=== PATIENT | female | born 1985 | race Caucasian/White ===

== ENCOUNTER 2018-11-14 20:15 | Emergency (ER) | payer OTHER ==
[~2018-11-14] VITALS: Ht 157.5 cm; Wt 73.5 kg
[2018-11-14 20:20] VITALS: BP 114/60
--- NOTE | 2018-11-14 20:23 | NUR ---
TO LOBBY A/W BED AMBULATORY
--- NOTE | 2018-11-14 21:54 | NUR ---
PT TAKEN TO BED 5
--- NOTE | 2018-11-14 22:06 | NUR ---
33 Y/O FEMALE PRESENTS TO ED, C/O HEADACHE X1 WEEK. PT STATES HEADACHE WORSENED YESTERDAY 10/31. C/O OF 2 EPISODES OF N/V YESTERDAY. PT STATES TAKING SISTER'S UNKNOWN MEDICATION FOR PAIN, INEFFECTIVE. PT UNABLE TO ALLEVIATE PAIN. PT VSS. ERMD AWARE. WILL CONTINUE TO MONITOR.
--- NOTE | 2018-11-14 23:17 | NUR ---
Dr. Marx examining patient.
[2018-11-14] MEDS ORDERED: METOCLOPRAMIDE 10 MG/2 ML INJ VIAL IVP ONE (23:35)
[2018-11-14] MEDS ORDERED: diphenhydrAMINE 50 MG/ML VIAL IVP ONE (23:35)
[2018-11-14] MEDS ORDERED: NACL 0.9% 1,000 ML IV ONE (23:35)
[2018-11-14] MEDS ORDERED: KETOROLAC 15 MG/ML VIAL IVP ONE (23:35)
[2018-11-15 00:01] LABS: BASOPHILS % (AUTO) 0.3 % (0.0-2.0); EOSINOPHILS # (AUTO) 0.2 K/uL (0-0.4); HEMATOCRIT 39.8 % (36-48); HEMOGLOBIN 13.2 g/dL (12.0-16.0); LYMPHOCYTES # (AUTO) 2.6 K/uL (2.5-16.5); MEAN CORPUSCULAR HEMOGLOBIN 27 pg (27-31); MEAN CORPUSCULAR HGB CONC 33 g/dL (33-37); MEAN CORPUSCULAR VOLUME 79.9 fL (80-94); MONOCYTES # (AUTO) 0.5 K/uL (0.8-1.0); MONOCYTES % (AUTO) 8.2 % (1.7-9.3); NEUTROPHILS % (AUTO) 47.5 % (42.2-75.2); PLATELET COUNT (AUTO) 215 K/uL (140-450); RED BLOOD CELL COUNT(AUTO) 4.98 MIL/uL (4.20-5.40); RED CELL DISTRIBUTION WIDTH 15.5 % (11.6-13.7); WHITE BLOOD COUNT (AUTO) 6.4 K/uL (4.8-10.8)
[2018-11-15 00:22] LABS: APPEARANCE,URINE CLEAR (CLEAR); BILIRUBIN,URINE NEGATIVE (NEGATIVE); BLOOD, URINE NEGATIVE (NEGATIVE); COLOR,URINE YELLOW (YELLOW); LEUKOCYTE ESTERASE ,URINE NEGATIVE (NEGATIVE); NITRITE, URINE NEGATIVE (NEGATIVE); UGLUCOSE NEGATIVE (NEGATIVE)
[2018-11-15 00:24] LABS: ANION GAP 13.8 (8-16); CREATININE 0.7 mg/dL (0.6-1.3); POTASSIUM 3.8 mmol/L (3.5-5.1)
--- NOTE | 2018-11-15 01:03 | NUR ---
PT AWAKE, LAYING ON BED. PT DENIES ANY PAIN. PT VSS. ERMD AWARE. WILL CONTINUE TO MONITOR.
[2018-11-15 01:22] VITALS: BP 109/63
--- NOTE | 2018-11-15 01:22 | NUR ---
PT DISCHARGED WITH PAPERWORK. NO RX PROVIDED. EDUCATED PT REGARDING DISCHARGE DIAGNOSIS. PT VERBALIZED UNDERSTANDING OF TEACHING. TOLD PT TO FOLLOW UP WITH PCP AND WHEN TO RETURN TO ED. PT VSS. NO N/V. PT DENIES ANY PAIN. ALL QUESTIONS ANSWERED.
== END 2018-11-15 01:22 | disposition home or self-care (01) ==
LOC: MED 20:15
DX: G44.209 Tension-type headache, unspecified, not intractable (principal); Z88.1 Allergy status to other antibiotic agents
CPT/HCPCS: 36415; 70450; 80048; 81003; 81025; 85025; 96361; 96374; 96375; 99284; J1200; J1885; J2765; J7030

== ENCOUNTER 2023-08-31 22:01 | Emergency (ER) | payer SELFPAY ==
[~2023-08-31] VITALS: Ht 157.5 cm; Wt 72.1 kg
[2023-08-31 22:56] VITALS: BP 114/82; PULSE 88; RESP 18; TEMP 98; O2SAT 99
[2023-09-01] MEDS ORDERED: CARB15DR61 OT (01:36)
== END 2023-09-01 01:31 | disposition left against medical advice (07) ==
LOC: MED 22:01
DX: K08.89 Other specified disorders of teeth and supporting structures (principal); Z53.21 Procedure and treatment not carried out due to patient leaving prior to being seen by health care provider